=== PATIENT | male | born 1950 | race Caucasian/White ===

== ENCOUNTER 2021-02-25 09:55 | Emergency (ER) | payer MEDICARE ==
[~2021-02-25] VITALS: Ht 182.9 cm; Wt 95.5 kg
[2021-02-25] MEDS ORDERED: HYDROcodone/acetaminophen 10/325mg tab PO ONE (13:40)
[2021-02-25] MEDS ORDERED: ketorolac trometh. 30mg/ml inj. IM ONE (13:40)
[2021-02-25] MEDS ORDERED: HYDR-3972 PO (13:48)
[2021-02-25] MEDS ORDERED: ORPH100T2 PO (13:48)
[2021-02-25 14:08] VITALS: BP 130/65
== END 2021-02-25 14:09 | disposition home or self-care (01) ==
LOC: ER 09:56
DX: M54.41 Lumbago with sciatica, right side (principal); I10 Essential (primary) hypertension; E78.00 Pure hypercholesterolemia, unspecified; Z87.891 Personal history of nicotine dependence; Z72.89 Other problems related to lifestyle
CPT/HCPCS: 72100; 96372; 99283; J1885

== ENCOUNTER 2022-07-06 06:46 | Emergency (ER) | payer MEDICARE ==
[~2022-07-06] VITALS: Ht 182.9 cm; Wt 90.9 kg
[~2022-07-06 06:46] MED LIST: DEXT30SU5 PO; LEVO-65 PO; METO-395 PO; PRED10TA PO; RAMI10CA69 PO
[2022-07-06 06:51] VITALS: BP 151/100
== END 2022-07-06 10:31 | disposition home or self-care (01) ==
LOC: ER 06:47
DX: M25.521 Pain in right elbow (principal); Z53.21 Procedure and treatment not carried out due to patient leaving prior to being seen by health care provider

== ENCOUNTER 2024-03-29 23:27 | Emergency (ER) | payer MEDICARE ==
[~2024-03-29] VITALS: Ht 182.9 cm; Wt 90.9 kg
[~2024-03-29 23:27] MED LIST changes: +ALB0.5UD IH; +APIX5TAB3 PO; +ATOR10TA70 PO; +ATR0.5NEB IH; +BUDE10.22 INH; +CARV12.5 PO; +CEFU250T95 PO; -DEXT30SU5 PO; +DILT-115 PO; -LEVO-65 PO; -METO-395 PO; -PRED10TA PO; -RAMI10CA69 PO
[2024-03-29 23:36] VITALS: BP 174/76; PULSE 76; RESP 18; O2SAT 98
[2024-03-29 23:52] VITALS: TEMP 97.9
== END 2024-03-29 23:55 | disposition home or self-care (01) ==
LOC: ER 23:28
DX: Z02.89 Encounter for other administrative examinations (principal); I48.91 Unspecified atrial fibrillation; E78.00 Pure hypercholesterolemia, unspecified; I10 Essential (primary) hypertension; J44.9 Chronic obstructive pulmonary disease, unspecified; Z79.51 Long term (current) use of inhaled steroids; Z79.899 Other long term (current) drug therapy
CPT/HCPCS: 99283